=== PATIENT | male | born 1990 | race Asian ===

== ENCOUNTER 2018-10-29 22:46 | Emergency (ER) | payer OTHER ==
[~2018-10-29] VITALS: Ht 180.3 cm; Wt 77.1 kg
[2018-10-29] MEDS ORDERED: ZANTAC150 MG ORAL (23:04)
[2018-10-29] MEDS ORDERED: OMEPRAZOLE20 M3 ORAL (23:04)
[2018-10-29 23:13] VITALS: BP 129/81
[2018-10-29] MEDS ORDERED: Lidocaine 2% Visc 15ml soln ORAL ONE (23:45)
[2018-10-29] MEDS ORDERED: Mylanta II UD 30ml ORAL ONE (23:45)
--- NOTE | 2018-10-30 00:08 | Emergency Room Report ---
History of Present Illness General Chief Complaint: General Complaint Source: Patient Present Illness HPI Is a 28-year-old male with history of reflux. He is taking omeprazole. He presents with chief complaint of chest pain. Onset tonight after taking a sip of alcohol. That her after taking some Tums. Now pain is burning sensation to the mid chest. No radiation. No nausea no vomiting. No shortness of breath. No diaphoresis. No exertional component. Pain is 5 out of 10. Denies any other complaint. Allergies: Coded Allergies: No Known Allergies (Unverified , 10/29/18) Patient History Past Medical History: see triage record, old chart reviewed Past Surgical History: none Pertinent Family History: none Social History: Denies: smoking Immunizations: other Reviewed Nursing Documentation: PMH: Agreed; PSxH: Agreed Nursing Documentation-PMH Hx Gastrointestinal Problems: Yes - GERD, hiatal hernia Review of Systems Eye: Denies: eye pain, blurred vision ENT: Denies: ear pain, nose congestion, throat swelling Respiratory: Denies: cough, shortness of breath Cardiovascular: Reports: chest pain; Denies: palpitations Gastrointestinal: Denies: abdominal pain, diarrhea, nausea, vomiting Musculoskeletal: Denies: back pain, joint pain Skin: Denies: rash Neurological: Denies: headache, numbness Endocrine: Denies: increased thirst, increased urine Hematologic/Lymphatic: Denies: easy bruising All Other Systems: negative except mentioned in HPI Physical Exam Vital Signs Date Time Temp Pulse Resp B/P (MAP) Pulse Ox O2 Delivery O2 Flow Rate FiO2 10/29/18 22:59 97.3 73 18 129/81 95 Room Air vitals normal Sp02 EP Interpretation: reviewed, normal General Appearance: well appearing, no apparent distress, alert Head: normocephalic, atraumatic Eyes: bilateral eye PERRL, bilateral eye EOMI ENT: hearing grossly normal, normal pharynx Neck: full range of motion, supple, no meningismus Respiratory: chest non-tender, lungs clear, normal breath sounds Cardiovascular #1: regular rate, rhythm, no murmur Gastrointestinal: normal bowel sounds, non tender, no mass, no organomegaly, no bruit, non-distended Musculoskeletal: back normal, gait/station normal, normal range of motion Psychiatric: mood/affect normal Skin: warm/dry Medical Decision Making Diagnostic Impression: Primary Impression: GERD (gastroesophageal reflux disease) Qualified Codes: K21.9 - Gastro-esophageal reflux disease without esophagitis ER Course Patient with symptoms consistent of GERD. No evidence of ACS, PE, dissection to name a few. Better after GI cocktail. EKG is normal. We'll discharge home. EKG Diagnostic Results Rate: normal Rhythm: NSR ST Segments: no acute changes Last Vital Signs Date Time Temp Pulse Resp B/P (MAP) Pulse Ox O2 Delivery O2 Flow Rate FiO2 10/29/18 23:13 97.3 83 18 129/81 95 Room Air Status: improved Disposition: HOME, SELF-CARE Condition: Stable Additional Instructions: Follow-up with your Dr. in 7 days. You may benefit from referral to see a GI doctor to check for H. pylori infection. Return if worse. Julius Canela MD Oct 30, 2018 00:08
[2018-10-30 00:50] VITALS: BP 129/81
--- NOTE | 2018-10-30 15:58 | Cardiology Report ---
APPROVED REPORT EKG Measurement Heart [id number] Sinus bradycardia Nonspecific ST abnormality Abnormal ECG
== END 2018-10-30 00:51 | disposition home or self-care (01) ==
LOC: EMR 23:10
DX: K21.9 Gastro-esophageal reflux disease without esophagitis (principal)
CPT/HCPCS: 93005; 99283